=== PATIENT | male | born 1990 | race Caucasian/White ===

== ENCOUNTER 2018-05-07 09:33 | Day surgery (SDC) | payer OTHER ==
[~2018-05-07] VITALS: Ht 182.9 cm; Wt 77.6 kg
[2018-05-07 10:08] VITALS: BP 113/70; PULSE 66; TEMP 97.8
[2018-05-07] MEDS ORDERED: PROTONIX 40MG T40 MG PO (10:12)
[2018-05-07 11:45] VITALS: BP 128/77; PULSE 70
[2018-05-07 12:00] VITALS: BP 113/73; PULSE 57
[2018-05-07 12:15] VITALS: BP 113/68; PULSE 54
[2018-05-07 13:55] VITALS: BP 101/61; PULSE 46
== END 2018-05-07 12:25 | disposition home or self-care (01) ==
LOC: SDCO 09:33
DX: K21.9 Gastro-esophageal reflux disease without esophagitis (principal); Z87.891 Personal history of nicotine dependence
CPT/HCPCS: OP; J2250; J3010; J7030

== ENCOUNTER → 2018-08-13 | Outpatient (CLI) | payer OTHER ==
[~2018-08-13] MED LIST: PROTONIX 40MG T40 MG PO
== END ==
LOC: COL.RAD 07:32
DX: K21.9 Gastro-esophageal reflux disease without esophagitis (principal); R06.02 Shortness of breath
CPT/HCPCS: A9541

== ENCOUNTER → 2020-09-06 | Outpatient (CLI) | payer OTHER | LOC: COL.RAD 10:05 | DX: H53.9 Unspecified visual disturbance (principal); R20.2 Paresthesia of skin | CPT/HCPCS: A9585 ==

== ENCOUNTER 2021-05-02 08:22 | Outpatient (CLI) | payer OTHER ==
[~2021-05-02] VITALS: Ht 182.9 cm; Wt 80.5 kg
[~2021-05-02 08:22] MED LIST changes: +BENTYL 10MG10 MG/CAP PO; +LEXAPRO 10MG10 MG PO; +PROTONIX20 MG PO
[2021-05-02] MEDS ORDERED: QUESTRAN4 GM/9 GM PO (08:49)
[2021-05-02] MEDS ORDERED: VALTREX 50500 MG/TAB PO (08:50)
[2021-05-02 08:51] VITALS: BP 129/72; PULSE 57; TEMP 97.7
[2021-05-02 09:25] VITALS: BP 118/77; PULSE 63
[2021-05-02 09:30] VITALS: BP 110/70; PULSE 61
[2021-05-02 09:45] VITALS: BP 110/66; PULSE 63
[2021-05-02 10:00] VITALS: BP 113/69; PULSE 69
[2021-05-02 10:02] LABS: CSF APPEARANCE CLEAR; CSF COLOR COLORLESS; CSF RBC 0 /mm3 (0-0)
[2021-05-02 10:08] LABS: GLUCOSE,CSF 53 mg/dL (40-70); TOTAL PROTEIN,CSF 30 mg/dL (15-45)
[2021-05-02 11:22] LABS: CSF MONONUCLEAR 100 % (70-100); CSF POLYMORPHONUCLEAR 0 % (0-6)
== END 2021-05-02 10:30 | disposition home or self-care (01) ==
LOC: COL.RAD 08:22
PROVIDERS: Nurse Practitioner
DX: G43.909 Migraine, unspecified, not intractable, without status migrainosus (principal); H53.9 Unspecified visual disturbance; R20.2 Paresthesia of skin

== ENCOUNTER → 2021-05-03 | Outpatient (CLI) | payer OTHER ==
[~2021-05-03] MED LIST changes: +QUESTRAN4 GM/9 GM PO; +VALTREX 50500 MG/TAB PO
== END ==
LOC: COL.RAD 05-02 13:00
DX: I65.02 Occlusion and stenosis of left vertebral artery (principal); G43.809 Other migraine, not intractable, without status migrainosus; H53.9 Unspecified visual disturbance; R20.2 Paresthesia of skin; M46.96 Unspecified inflammatory spondylopathy, lumbar region
CPT/HCPCS: Q9967